=== PATIENT | male | born 1990 | race African-American/Black ===

== ENCOUNTER 2024-05-24 19:28 | Emergency (ER) | payer SELFPAY ==
[~2024-05-24] VITALS: Ht 180.3 cm; Wt 94.1 kg
[2024-05-24 19:56] VITALS: BP 119/79; PULSE 86; RESP 20; TEMP 98.3; O2SAT 100
[2024-05-24] MEDS ORDERED: MIRT-149 PO (19:59)
[2024-05-24] MEDS ORDERED: BUPR-514 PO (19:59)
[2024-05-24] MEDS ORDERED: HYDR50CA7 PO (19:59)
[2024-05-24] MEDS: LORazepam 2 MG TABLET PO ONE (23:08)
[2024-05-24] MEDS: KETOROLAC TROMETHAMINE 30 MG/ML VIAL IM ONE (23:09)
== END 2024-05-24 23:16 | disposition home or self-care (01) ==
LOC: EMS 19:28
DX: F15.10 Other stimulant abuse, uncomplicated (principal); R06.4 Hyperventilation; F31.9 Bipolar disorder, unspecified; Z91.013 Allergy to seafood; Z88.8 Allergy status to other drugs, medicaments and biological substances
CPT/HCPCS: 99283; 96372; J1885

== ENCOUNTER 2025-08-16 14:07 | Inpatient (IN) | payer MEDICAID ==
[~2025-08-16] VITALS: Ht 180.3 cm; Wt 90.9 kg
[2025-08-16 10:10] VITALS: BP 138/82; PULSE 96; RESP 18; TEMP 97.9; O2SAT 98
[~2025-08-16 14:07] MED LIST: BUPR-50 PO; HYDR50CA7 PO; MIRT-149 PO
[2025-08-16] MEDS ORDERED: MAGNESIUM HYDROXIDE SUSPENSION 30 ML UDCUP PO PRN (15:00)
[2025-08-16] MEDS ORDERED: GuaiFENesin/D-METHORPHAN [SUGAR-FREE] 200-20MG/10 ML SYRUP UDCUP PO PRN (15:00)
[2025-08-16] MEDS ORDERED: PROMETHAZINE HCL 25 MG TABLET PO PRN (15:00)
[2025-08-16] MEDS ORDERED: TUBERCULIN, PURIFIED PROTEIN DERIVATIVE 5 TU/0.1 ML SYRINGE ID ONE (15:00)
[2025-08-16] MEDS ORDERED: ZOLPIDEM TARTRATE 10 MG TABLET PO PRN (15:00)
[2025-08-16] MEDS ORDERED: ACETAMINOPHEN 325 MG TABLET PO PRN (15:00)
[2025-08-16] MEDS ORDERED: LOPERAMIDE HCL 2 MG CAPSULE PO PRN (15:00)
[2025-08-16] MEDS ORDERED: OLANZapine 5 MG RAPDIS TABLET PO PRN (15:00)
[2025-08-16] MEDS ORDERED: MAG HYDROX/ALUMINUM HYD/SIMETH ES 30 ML SUSPENSION UDCUP PO PRN (15:00)
[2025-08-16] MEDS: THIAMINE 100 MG TABLET PO SCH (17:41)
[2025-08-16 17:53] VITALS: BP 143/101; PULSE 94; PULSE 96; RESP 18; TEMP 97.3; O2SAT 98
[2025-08-16] MEDS ORDERED: PNEUMOCOCCAL VACCINE POLYVALENT 0.5 ML SYRINGE [PPSV23] IM. ONE (18:00)
[2025-08-16] MEDS: OLANZapine 5 MG RAPDIS TABLET PO SCH (20:07)
[2025-08-16] MEDS: MELATONIN 5 MG TABLET PO SCH (20:08)
[2025-08-16] MEDS: DIVALPROEX SODIUM 500 MG ER TABLET PO SCH (20:08)
[2025-08-16 23:55] VITALS: BP 132/86; PULSE 88; RESP 18; TEMP 97.5; O2SAT 99
[2025-08-17] MEDS: MULTIVITAMINS WITH MINERALS, THERAPEUTIC TABLET PO SCH (08:42)
[2025-08-17] MEDS: NALTREXONE HCL 50 MG TABLET PO SCH (08:42)
[2025-08-17] MEDS: FOLIC ACID 1 MG TABLET PO SCH (08:42)
[2025-08-17 11:04] LABS: PLATELET COUNT (AUTO) 335 K/uL (150-450); RED BLOOD CELL COUNT(AUTO) 4.81 MIL/uL (4.50-5.90); RED CELL DISTRIBUTION WIDTH 13.7 % (11.5-14.5); WHITE BLOOD COUNT (AUTO) 7.5 K/uL (4.5-11.0)
[2025-08-17 12:31] VITALS: BP 132/86; PULSE 90; RESP 15; TEMP 98; O2SAT 99
[2025-08-17 12:35] LABS: ASPARTATE AMINOTRANSFERASE 36 U/L (15-37); CALCIUM, TOTAL 8.8 mg/dL (8.8-10.5); CHOL/HDL RATIO 1.9 (4.2-7.3); CREATININE 1.04 mg/dL (0.60-1.30); GLOMERULAR FILTR. RATE CALC > 60 mL/min (>60); GLUCOSE,RANDOM 85 mg/dL (70-110); LDL CHOL (CALC.) 28 mg/dL (0-130); SODIUM SERUM 137 mmol/L (136-145); TOTAL PROTEIN, SERUM 6.7 g/dL (6.4-8.2); UREA NITROGEN, BLOOD 8 mg/dL (7-18)
[2025-08-17] MEDS: GABAPENTIN 400 MG CAPSULE PO SCH (20:05)
[2025-08-17 20:33] VITALS: BP 129/75; PULSE 80; RESP 17; TEMP 98; O2SAT 100
[2025-08-18 01:06] LABS: HEPATITIS C AB (EIA) Non Reactive (Non Reactive)
[2025-08-18 08:41] VITALS: BP 122/74; PULSE 74; RESP 18; TEMP 97.5; O2SAT 99
[2025-08-18] MEDS: SERTRALINE HCL 50 MG TABLET PO SCH (08:52)
[2025-08-18 09:41] LABS: PH,URINE DRUG SCREEN 6.0 (5.0-8.0)
[2025-08-18 09:47] LABS: AMPHET/METH SCREEN,URINE POSITIVE (NEGATIVE); BARBITURATE SCREEN, URINE NEGATIVE (NEGATIVE); CANNABINOID SCREEN,URINE NEGATIVE (NEGATIVE); COCAINE SCREEN,URINE NEGATIVE (NEGATIVE); METHADONE SCREEN, URINE NEGATIVE (NEGATIVE)
[2025-08-18 09:55] LABS: ALCOHOL, URINE DRUG SCREEN NEGATIVE (NEGATIVE)
[2025-08-18] MEDS ORDERED: SERT-439 PO (16:02)
[2025-08-18] MEDS ORDERED: MELA5TAB40 PO (16:02)
[2025-08-18] MEDS ORDERED: OLAN5TAB94 PO (16:02)
[2025-08-18] MEDS ORDERED: DIVA-153 PO (16:02)
[2025-08-18] MEDS ORDERED: GABA-1201 PO (16:02)
[2025-08-18] MEDS ORDERED: NALT50TA33 PO (16:02)
[2025-08-18 16:22] VITALS: BP 119/80; PULSE 76; RESP 18; TEMP 97.4; O2SAT 98
[2025-08-18 20:15] VITALS: BP 136/88; PULSE 75; RESP 18; TEMP 97; O2SAT 98
[2025-08-19 08:08] VITALS: BP 127/85; PULSE 65; RESP 18; TEMP 97.4; O2SAT 97
== END 2025-08-19 08:15 | disposition home or self-care (01) | DRG 761 ==
LOC: B3A 16:12
PROVIDERS: ADMIT Psychiatry & Neurology Psychiatry; ATTEND Psychiatry & Neurology Psychiatry
PROC: GZHZZZZ Group Psychotherapy (ICD-10-PCS; principal; 2025-08-17)
PROC: GZ58ZZZ Individual Psychotherapy, Cognitive-Behavioral (ICD-10-PCS; 2025-08-17)
PROC: GZ56ZZZ Individual Psychotherapy, Supportive (ICD-10-PCS; 2025-08-17)
DX: F25.9 Schizoaffective disorder, unspecified (principal); R45.851 Suicidal ideations; D64.9 Anemia, unspecified; F10.20 Alcohol dependence, uncomplicated; I10 Essential (primary) hypertension; J44.9 Chronic obstructive pulmonary disease, unspecified; F15.90 Other stimulant use, unspecified, uncomplicated; F17.200 Nicotine dependence, unspecified, uncomplicated; Z59.9 Problem related to housing and economic circumstances, unspecified; Z55.9 Problems related to education and literacy, unspecified; Z63.9 Problem related to primary support group, unspecified; Z62.810 Personal history of physical and sexual abuse in childhood; Z65.3 Problems related to other legal circumstances; Z86.73 Personal history of transient ischemic attack (TIA), and cerebral infarction without residual deficits; Z88.0 Allergy status to penicillin; Z91.148 Patient's other noncompliance with medication regimen for other reason; Z91.51 Personal history of suicidal behavior
CPT/HCPCS: 80053; 80061; 80307; 83036; 84439; 84443; 85025; 86592; 86803; 87340